=== PATIENT | male | born 1980 | race Caucasian/White ===

== ENCOUNTER 2024-11-15 20:00 | Outpatient (REF) | payer OTHER, SELFPAY ==
--- NOTE | ~2024-11-15 | MR_ITS ---
CLINICAL HISTORY: Left knee pain. MR left knee without intravenous contrast Comparison: None provided Findings: No x-rays available for review or comparison of this time. 6 mm marrow signal with non aggressive appearing low and mixed T1 signal likely due to enchondroma in the distal femur. Anterior cruciate ligament is intact. Posterior cruciate ligament is intact No tear of the medial meniscus or lateral meniscus. Fluid anterior to the patella is nonspecific and can be seen with prepatellar bursitis measuring 5 mm thickness of the time of the imaging. Hematoma and/or posttraumatic swelling of the also considered. Mild adjacent marrow signal of the lateral aspect of the patella noted anteriorly as can be seen with small bone contusion and reactive marrow edema. Prominence of the suprapatellar fat with indentation of the suprapatellar fossa. This can be associated with the pain and/or pain generator site. Small effusion present. Mild/minimal fraying of the quadriceps insertion of the patella (image 10 of series 8). Extensor mechanism is otherwise intact. Small anterior-medial plica. Medial collateral ligament complex and lateral collateral ligament complex are intact. IMPRESSION: 1. Abnormal fluid anterior to the patella as can be seen with prepatellar bursitis. Posttraumatic edema and/or small hematoma can have a similar imaging appearance. 2. Mild bone marrow edema of the lateral aspect of the patella. 3. No cruciate ligament tear or meniscus tear. 4. Small effusion present. This document has been electronically signed by: Delio Martini MD on 11/15/2024 21:23:10
== END 2024-11-15 20:01 | disposition home or self-care (01) ==
LOC: HO.MRI 20:00
PROVIDERS: PCP Family Medicine; Visit Provider Family Medicine
DX: M25.562 Pain in left knee (principal)
CPT/HCPCS: 73721

== ENCOUNTER → 2024-11-15 20:12 | Outpatient (BNV) | payer OTHER, SELFPAY | PROVIDERS: PCP Family Medicine; Visit Provider Radiology Neuroradiology | DX: M70.42 Prepatellar bursitis, left knee (principal) | CPT/HCPCS: 73721 ==

== ENCOUNTER 2025-02-19 13:44 | Outpatient (AMB) | payer OTHER, SELFPAY ==
--- NOTE | 2025-02-19 13:53 | A.OFFPC_ITS ---
Vital Signs 02/19/25 13:54 Height 6 ft 3 in Weight 229 lb 2 oz BMI 28.6 BP 122/84 Blood Pressure Location Lt brachial Position Sitting Pulse 75 Pulse Source Pulse Oximeter Temp 97.1 F Temp Source Temporal Artery Scan Pulse Oximetry (%) 98 Oxygen Delivery Method Room Air Intake Visit Reasons: NEW PATIENT Allergies No Known Allergies Allergy (Verified 02/19/25 13:55) Medication List - Last Reconciled 02/19/25 by Kayden Glaser MD allopurinol 300 mg PO DAILY Tobacco use date assessed: 02/19/25 Dental Screening Dental Screen Date: 02/19/25 Did you have a dental visit in the last 12 months?: Yes Did you have a dental problem in the last 6 months where you did not have access to dental care?: No Was dental information given to patient?: Patient has dentist [facility] Surgical History (Updated 02/19/25 @ 14:05 by Kayden Glaser MD) History of tonsillectomy No pertinent past surgical history Family History (Updated 02/19/25 @ 13:58 by Isidra Moncada CMA) Father Diabetes Social History (Updated 02/19/25 @ 14:07 by Kayden Glaser MD) Household Members: None Housing: House Alcohol intake: current Alcohol intake frequency: a few times a month Comment: Once Q 2 weeks 2-3 drinks Patient Tobacco Use Status: Never used Tobacco e-Cigarette/Vaping Use: Never Used service: Yes ([employer]) Current occupational status: employed Current occupation: [employer] Cognitive needs: No Hearing needs: No Vision needs: No Questionnaire PHQ-9 Over the last 2 weeks, how often have you been bothered by any of the following problems? 1. Little interest or pleasure in doing things: not at all 2. Feeling down, depressed, or hopeless: not at all 3. Trouble falling or staying asleep, or sleeping too much: not at all 4. Feeling tired or having little energy: not at all 5. Poor appetite or overeating: not at all 6. Feeling bad about yourself - or that you are a failure or have let yourself or your family down: not at all 7. Trouble concentrating on things, such as reading the newspaper or watching television: not at all 8. Moving or speaking so slowly that other people could have noticed. Or the opposite - being so fidgety or restless that you have been moving around a lot more than usual: not at all 9. Thoughts that you would be better off or of hurting yourself in some way: not at all Total score: 0 Depression Screening Interpretation: Negative Depression Screening Done: Yes 44341 - PHQ-9 Billing: Yes Source: Developed by Drs. Eliceo Araiza, Phylicia Olivera, Zay Francis and colleagues, with an educational yg from [employer]. Thrive Questionnaire Date Thrive assessed: 02/18/25 I am a: Patient What is your living situation today?: I have a steady place to live Within the past 12 months, did the food you bought not last and you didn't have the money to get more?: Never true Within the past 12 months, did you worry whether your food would run out before you got money to buy more?: Never true Do you have trouble paying for medicines?: No Do you have trouble getting transportation to medical appointments?: No Do you have trouble paying your heating and electricity bill?: No Do you have trouble taking care of your child, family member or friend?: No Do you have trouble with day-to-day activities such as bathing, preparing meals, shopping, managing finances, etc.?: No Are you currently unemployed and looking for a job?: No Are you interested in more education?: No Please select the resources that you would like help with: None Currently or been in a relationship where the following occur: No concerns reported THRIVE Score: 0 AUDIT C Alcohol Use Questionnaire (AUDIT-C) 1. How often do you have a drink containing alcohol?: Monthly or less 2. How many drinks containing alcohol do you have on a typical day when you are drinking?: 1 or 2 3. How often do you have six or more drinks on one occasion?: Never Total Score: 1 MISTI-7 AMB Questionnaire MISTI-7 Date MISTI - 7 assessed: 02/19/25 Feeling nervous, anxious, or on edge: 0 = Not at all Not being able to stop or control worryin = Not at all Worrying too much about different things: 0 = Not at all Trouble relaxin = Not at all Being so restless that it is hard to sit still: 0 = Not at all Becoming easily annoyed or irritable: 0 = Not at all Feeling afraid as if something awful might happen: 0 = Not at all Total MISTI-7 score (0-4 normal; 5-9 mild; 10-14 moderate; 15-21 severe): 0 Source: Developed by Drs. Eliceo Araiza, Phylicia Olivera, Zay Francis and colleagues, with an educational yg from [employer]. MISTI-7 Assessment Billing MISTI-7 Assessment Tool: MISTI-7 Assessment 28995 Physical exam (Primary Care) Vital Signs: Last Vital Signs Temp 97.1 F 02/19/25 13:54 Pulse 75 02/19/25 13:54 BP 122/84 02/19/25 13:54 Pulse Ox 98 02/19/25 13:54 Oxygen Delivery Method Room Air 02/19/25 13:54 BMI result Body Mass Index 28.6 Tobacco/Smoking Status: Tobacco use Status Tobacco use date assessed 02/19/25 02/19/25 13:57 Patient Tobacco Use Status Never used Tobacco 02/19/25 14:07 e-Cigarette/Vaping Use Never Used 02/19/25 14:07 PHQ-9: PHQ-9 Score PHQ-9: Total score 0 02/19/25 13:59 Depression Screening Interpretation: Negative Thrive Assessment: Date of Thrive Assessment Date Thrive assessed 02/18/25 02/19/25 13:57 Currently or been in a relationship where the following occur: No concerns reported Const General: alert; No acute distress Eyes Conjunctivae: conjunctivae normal Resp Auscultation: clear to auscultation bilaterally Cardio Rate: regular rate Rhythm: regular rhythm GI Inspection: Yes normal to inspection Extrem General: Yes normal to inspection and No edema Coding Level of Care Code New Pt Level 4 (86585) Diagnoses Prepatellar bursitis, left knee M70.42 Overweight (BMI 25.0-29.9) E66.3 Colon cancer screening Z12.11 Gout M10.9 Additional Codes MISTI-7 Assessment Billing - MISTI-7 Assessment Tool: MISTI-7 Assessment 46419 ([id number]) PHQ-9 - 22358 - PHQ-9 Billing: Yes ([id number]) Assessment & Plan Assessment & Plan (1) Prepatellar bursitis, left knee: Comment: October 2024 Code(s): M70.42 - Prepatellar bursitis, left knee Category: Medical Plan: Resolved (2) Overweight (BMI 25.0-29.9): Code(s): E66.3 - Overweight Category: Medical Plan: Diet and exercise (3) Colon cancer screening: Code(s): Z12.11 - Encounter for screening for malignant neoplasm of colon Category: Medical Plan: Reminded about colon cancer screening (4) Gout: Code(s): M10.9 - Gout, unspecified Category: Medical Plan: Low purine diet and keep well hydrated Plan History of Present Illness The patient is a 44-year-old male presenting for a new patient visit. 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 An MRI of the left knee on November 15, 2024, revealed prepatellar bursitis with abnormal fluid, posttraumatic edema or a small hematoma, mild bone marrow edema on the lateral patella, and a small effusion, with no cruciate ligament or meniscal tear. He reports the knee is now fine and symptoms have resolved. The patient has a history of gout, which began in his 20s, and is currently taking allopurinol. His father also has a history of gout. He manages his condition with increased water intake and dietary modifications, including avoiding meats and alcohol. Past surgical history includes a tonsillectomy and placement of ear tubes. He has no known drug allergies and denies a history of lung, heart, liver, or seizure disorders. There is no family history of heart attack or cancer. Health Maintenance - Colon Cancer Screening: Patient is 44 years old and was reminded about colon cancer screening. - He received a stool test kit from the [place] but has not yet used it and is scheduled for a colonoscopy in April but is not ready for the procedure. - After discussing options, including annual stool tests, Cologuard every three years, and colonoscopy every ten years, the patient opted for the Cologuard test. Social History - Alcohol Use: Reports drinking alcohol, including wine, and is aware of conference recommendations to limit intake and a potential link to memory issues. - Tobacco Use: Denies ever smoking. - Recreational Drug Use: Reports using a small amount of marijuana. 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 - Healthcare Engagement: Patient reports that he does not like going to the doctor and delayed his current appointment by two to three months; his girlfriend, a PA, assisted in making the appointment. Review of Systems - Musculoskeletal: Reports a history of left knee swelling and pain from a twisting injury which has since resolved. - Denies recent trauma. - Cardiovascular: Denies heart problems or prior heart attacks. - Respiratory: Denies lung problems such as asthma. - Gastrointestinal: Denies liver problems or hepatitis. - Neurological: Denies a history of seizures. - Endocrine: Denies any known thyroid problems. - General: Reports a history of gout. Physical Exam General: Cooperative, healthy appearing, comfortable, no acute distress and well developed Orientation: Patient oriented x3 Limitations: No limitations Head: Normal to inspection Ears: Hearing grossly normal bilaterally Nose: Normal external nose present Face and sinus: Normal facial exam Eyes: Appearance normal, both eyes and all related structures Neck: Normal visual inspection and Yes full ROM Respiratory: Normal respiratory effort and able to speak in complete sentences. Clear to auscultation bilaterally Cardiovascular: Regular rate and rhythm. Normal S1 and S2 GI: Normal to inspection. Soft to palpation and nontender Skin: No rashes or lesions noted Neuro: Patient oriented x3 Extremities: Abnormal fluid anterior to the left patella, prepatellar bursitis, mild bone marrow edema on the lateral aspect of the left patella, small effusion present. No cruciate ligament tear or meniscus tear. Results - MRI Left Knee (11/15/2024): Findings suggested prepatellar bursitis with abnormal fluid anterior to the patella. - Also noted were posttraumatic edema and/or a small hematoma, mild bone marrow edema on the lateral aspect of the patella, and a small effusion. - No cruciate ligament tear or meniscus tear was present. Plan Patient was informed and verbally consented to the use of an ambient scribe for clinic note documentation during this visit. 1. Gout The patient has a history of gout since his 20s with a paternal family history. He manages it with diet and hydration and is currently taking allopurinol, for which he needs a refill. The prescription for allopurinol will be refilled. Blood work will be ordered, and the patient was advised to contact the office via the portal if he does not receive information within 3-4 days. 2. Left Prepatellar Bursitis The patient had a twisting injury to his left knee, and a subsequent MRI confirmed prepatellar bursitis without a meniscal or cruciate ligament tear. The patient reports that his knee is now fine and symptoms have completely resolved. No further intervention is required at this time. 3. Preventative Care: Colon Cancer Screening The patient is 44 and due for colon cancer screening. After discussing the options of a stool test, colonoscopy, and Cologuard, the patient opted to proceed with Cologuard testing. A Cologuard kit will be ordered and sent to the patient. Discussion Notes I reviewed the patient's October MRI which showed left prepatellar bursitis, and he confirmed the knee is now resolved. We discussed his history of gout, and I agreed to provide a refill for his allopurinol prescription. We also discussed colon cancer screening options as he is 44 years old. He is not ready for a colonoscopy at this time and elected to proceed with a Cologuard test, which I will order for him. I informed the patient that blood work would be ordered and instructed him to send a message via the patient portal if he does not hear from us in three to four days to ensure follow-up. Patient Instructions - I will send a refill for your allopurinol medication to your pharmacy. - We discussed ordering a Cologuard kit for your colon cancer screening. - We will be getting some bloodwork done. - If you do not hear from our office in a few days about the lab work, please send a message through the patient portal to remind me. - Continue to stay well-hydrated and be mindful of your diet to help manage your gout. Orders: Orders Uric Acid Today M10.9 - Gout, unspecified Complete Blood Count Auto Diff Today M10.9 - Gout, unspecified Comprehensive Met. Panel Today M10.9 - Gout, unspecified Free T4 (Free Thyroxine) Today M10.9 - Gout, unspecified Thyroid Stimulating Hormone Today M10.9 - Gout, unspecified Lipid Panel Today E78.00 - Pure hypercholesterolemia, unspecified, M10.9 - Gout, unspecified Vitamin B12 and Folate Today M10.9 - Gout, unspecified UA CC w/rflx Micro + Cult Today M10.9 - Gout, unspecified, R30.0 - Dysuria Referrals Cologuard Test Z12.11 - Encounter for screening for malignant neoplasm of colon, Z12.12 - Encounter for screening for malignant neoplasm of rectum Medications: New allopurinol 300 mg PO DAILY 90 tabs 3RF
[2025-02-19 13:54] VITALS: BP 122/84; PULSE 75; TEMP 36.2; O2SAT 98; BMI 28.6
== END 2025-02-19 14:23 | disposition home or self-care (01) ==
LOC: HO.HMCH 13:45
PROVIDERS: PCP Internal Medicine; Visit Provider Internal Medicine
DX: M70.42 Prepatellar bursitis, left knee (principal); E66.3 Overweight; Z12.11 Encounter for screening for malignant neoplasm of colon; M10.9 Gout, unspecified

== ENCOUNTER → 2025-02-19 13:44 | Outpatient (BNVA) | payer OTHER, SELFPAY | PROVIDERS: PCP Internal Medicine; Visit Provider Internal Medicine | DX: E66.3 Overweight (principal); M70.42 Prepatellar bursitis, left knee; M10.9 Gout, unspecified; Z68.28 Body mass index [BMI] 28.0-28.9, adult | CPT/HCPCS: 96127 ==